=== PATIENT | male | born 1965 | race Caucasian/White ===

== ENCOUNTER 2019-04-15 09:32 | Day surgery (SDC) | payer BC ==
[~2019-04-15 09:32] MED LIST: Lactated Ringers 1,000 ML IV SCH; Lidocaine 2% 5 ML SDV ONE; Propofol 200 MG/20 ML SDV ONE; fentaNYL 100 MCG/2 ML SDV ONE
--- NOTE | 2019-04-15 10:05 | PCM.PREANE ---
Preanesthetic Assessment - Anesthesia/Transfusion/Family Hx Anesthesia History: No Prior Anesthesia Family History of Anesthesia Reaction: No Transfusion History: No Prior Transfusion(s) - Review of Systems General: No Symptoms Pulmonary: No Symptoms Cardiovascular: No Symptoms Gastrointestinal: No Symptoms Neurological: Paresthesia Other: Reports: None - Physical Assessment NPO Status Date: 04/14/19 Height: 6 ft Weight: 108.409 kg ASA Class: 2 Mental Status: Alert & Oriented x3 Airway Class: Mallampati = 2 Dentition: Reports: Normal Dentition ROM/Head Extension: Full Lungs: Clear to Auscultation, Normal Respiratory Effort Cardiovascular: Regular Rate, Regular Rhythm - Allergies Allergies/Adverse Reactions: Allergies Allergy/AdvReac Type Severity Reaction Status Date / Time No Known Allergies Allergy Verified 04/15/19 10:06 - Blood Blood Available: No - Anesthesia Plan Pre-Op Medication Ordered: None - Acknowledgements Anesthesia Type Planned: General Anesthesia Pt an Appropriate Candidate for the Planned Anesthesia: Yes Alternatives and Risks of Anesthesia Discussed w Pt/Guardian: Yes Pt/Guardian Understands and Agrees with Anesthesia Plan: Yes Additional Comments: PMH: DM2, htn, gabipentin for diabetic neuropathy PLAN: tiva PreAnesthesia Questionnaire HEENT History: Reports: None Cardiovascular History: Reports: None Respiratory History: Reports: None Gastrointestinal History: Reports: None Genitourinary History: Reports: None Musculoskeletal History: Reports: None Neurological History: Reports: None Psychiatric History: Reports: None Endocrine/Metabolic History: Reports: Diabetes, Type II, Obesity/BMI 30+ Hematologic History: Reports: None Immunologic History: Reports: None Oncologic (Cancer) History: Reports: None Dermatologic History: Reports: None - Past Surgical History Head Surgeries/Procedures: Reports: None HEENT Surgical History: Reports: None Cardiovascular Surgical History: Reports: None Respiratory Surgical History: Reports: None GI Surgical History: Reports: None Male Surgical History: Reports: Vasectomy Endocrine Surgical History: Reports: None Neurological Surgical History: Reports: None Musculoskeletal Surgical History: Reports: None Oncologic Surgical History: Reports: None Dermatological Surgical History: Reports: None - SUBSTANCE USE Smoking Status *Q: Never Smoker Recreational Drug Use History: No - HOME MEDS Home Medications: Home Meds Gabapentin [Neurontin] 600 mg PO BEDTIME 04/11/19 [History] Glimepiride 1 mg PO DAILY 02/27/20 [History] Losartan Potassium 100 mg PO DAILY 04/11/19 [History] Rosuvastatin Calcium 10 mg PO DAILY 04/11/19 [History] metFORMIN HCl [Metformin HCl] 1,000 mg PO BID 04/11/19 [History] - CURRENT (IN HOUSE) MEDS Current Meds: Current Medications Lactated Ringer's (Ringers, Lactated) 1,000 mls @ 125 mls/hr IV ASDIRECTED RICKY Discontinued Medications Fentanyl (Sublimaze) Confirm Administered Dose 100 mcg .ROUTE .STK-MED ONE Stop: 04/15/19 08:18 Lidocaine (Xylocaine-Mpf 2%) Confirm Administered Dose 5 ml .ROUTE .STK-MED ONE Stop: 04/15/19 08:17 Propofol (Diprivan 20 Ml) Confirm Administered Dose 400 mg .ROUTE .STK-MED ONE Stop: 04/15/19 08:18
[2019-04-15] MEDS ORDERED: Midazolam 1 MG/ML 2 ML SDV ONE (11:10)
[2019-04-15] MEDS ORDERED: Propofol 200 MG/20 ML SDV ONE (11:14)
[2019-04-15] MEDS ORDERED: Glycopyrrolate 0.2 MG/ML SDV ONE (11:17)
--- NOTE | 2019-04-15 11:43 | PCM.OPNOTE ---
- General Post-Op/Procedure Note Date of Surgery/Procedure: 04/15/19 Operative Procedure(s): Colonoscopy with biopsy ascending colon mass and cold polypectomies from the sigmoid colon and rectum. Pre Op Diagnosis: Hemoccult-positive stool Post-Op Diagnosis: Ascending colon villous lesion. Sigmoid and rectal polyps. Anesthesia Technique: MAC (ASA II) Primary Surgeon: Javon Mclean Condition: Good Free Text/Narrative:: DICTATION [id number] CPT CODE [id number]
[2019-04-15] MEDS ORDERED: Lactated Ringers 1,000 ML IV SCH (11:45)
--- NOTE | 2019-04-15 12:24 | OR ---
SURGEON: Javon Mclean M.D. DATE OF PROCEDURE: 04/15/2019 OPERATION PERFORMED: Colonoscopy with biopsy of ascending colon mass and sigmoid and rectal polypectomy. PRIMARY SURGEON: Javon Mclean MD. ANESTHESIA: MAC. ASA CLASSIFICATION: II. PREOPERATIVE DIAGNOSIS: Hemoccult positive stool. POSTOPERATIVE DIAGNOSES: 1. Ascending colon mass. 2. Sigmoid polyp. 3. Rectal polyp. DESCRIPTION OF PROCEDURE: The patient was taken to the endoscopy room and positioned on the endoscopy table in the left lateral decubitus position. Time-out was called for appropriate identification of the patient and procedure. Monitored anesthesia care was provided. The colonoscope was inserted into the rectum and advanced with minimal difficulty to the cecum where the colonoscope was retroflexed to visualize the ascending colon from below. The colonoscope was then straightened and slowly withdrawn. One villous appearing lesion was noted in the ascending colon and multiple biopsies of this area were taken. It was quite friable and did bleed easily, although the bleeding had stopped by the time the final biopsies were taken. The remainder of the ascending colon, hepatic flexure, transverse colon, splenic flexure, and descending colon showed no tumors, polyps, diverticula, or angiodysplastic changes. One small polyp was encountered in the sigmoid colon and removed with cold biopsy forceps. A second polyp was encountered in the rectum and also removed with the cold biopsy forceps. The colonoscope was then withdrawn to the distal rectum and retroflexed to visualize the anal orifice from above. No tumors, polyps, or acute hemorrhoidal changes were noted. The colonoscope was then straightened, the rectum aspirated, and the colonoscope removed. The patient tolerated the procedure well and was taken to recovery room in stable condition. YARITZA / CASSY /[id number]
--- NOTE | 2019-04-15 13:11 | PCM48HPAN ---
Post Anesthesia Note - EVALUATION WITHIN 48HRS OF ANESTHETIC Vital Signs in Normal Range: Yes Patient Participated in Evaluation: Yes Respiratory Function Stable: Yes Airway Patent: Yes Cardiovascular Function Stable: Yes Hydration Status Stable: Yes Pain Control Satisfactory: Yes Nausea and Vomiting Control Satisfactory: Yes Mental Status Recovered: Yes Vital Signs: Last Vital Signs Temp 97.5 F 04/15/19 12:05 Pulse 80 04/15/19 12:05 Resp 14 04/15/19 12:05 BP 119/65 04/15/19 12:05 Pulse Ox 95 04/15/19 12:05
--- NOTE | 2019-04-15 13:11 | PCM.POSTAN ---
POST ANESTHESIA ASSESSMENT - MENTAL STATUS Mental Status: Alert, Oriented - VITAL SIGNS Vital Signs: Last Vital Signs Temp 97.5 F 04/15/19 12:05 Pulse 80 04/15/19 12:05 Resp 14 04/15/19 12:05 BP 119/65 04/15/19 12:05 Pulse Ox 95 04/15/19 12:05 - RESPIRATORY Respiratory Status: Respiratory Rate WNL, Airway Patent, O2 Saturation Stable - CARDIOVASCULAR CV Status: Pulse Rate WNL, Blood Pressure Stable - GASTROINTESTINAL GI Status: No Symptoms - POST OP HYDRATION Hydration Status: Adequate & Stable
== END 2019-04-15 12:48 | disposition home or self-care (01) ==
LOC: MW.SDS 09:32
PROVIDERS: ATTEND Surgery
DX: D12.2 Benign neoplasm of ascending colon (principal); K62.1 Rectal polyp; E11.9 Type 2 diabetes mellitus without complications; I10 Essential (primary) hypertension; E66.9 Obesity, unspecified; Z79.899 Other long term (current) drug therapy; Z79.84 Long term (current) use of oral hypoglycemic drugs; Z87.891 Personal history of nicotine dependence; Z78.9 Other specified health status; Z98.52 Vasectomy status; Z68.32 Body mass index [BMI] 32.0-32.9, adult
CPT/HCPCS: 45380; 82962; J2001; J2250; J2704; J3010; J3490; J7120; 88305